=== PATIENT | female | born 1960 | race Two or more races ===

== ENCOUNTER 2020-12-26 08:20 | Emergency (ER) | payer MEDICAID ==
[~2020-12-26] VITALS: Ht 162.6 cm; Wt 63.5 kg
[2020-12-26 08:34] VITALS: BP 142/80
[2020-12-26] MEDS ORDERED: LIDOCAINE 1% HCL (LOCAL ANESTH.) INJ 20ML MDV IJ ONE (09:15)
== END 2020-12-26 09:50 | disposition home or self-care (01) ==
LOC: EDBD 08:20 → ER 08:20
DX: S01.81XA Laceration without foreign body of other part of head, initial encounter (principal); Z88.2 Allergy status to sulfonamides; W01.198A Fall on same level from slipping, tripping and stumbling with subsequent striking against other object, initial encounter; Y93.89 Activity, other specified; Y92.89 Other specified places as the place of occurrence of the external cause; Y99.8 Other external cause status
CPT/HCPCS: 12013; 70450; 99284; J2001

== ENCOUNTER 2021-01-04 13:11 | Emergency (ER) | payer MEDICAID ==
[~2021-01-04] VITALS: Ht 160 cm; Wt 65.8 kg
[2021-01-04 13:12] VITALS: BP 128/83
== END 2021-01-04 14:46 | disposition home or self-care (01) ==
LOC: ER 13:11
DX: S01.81XD Laceration without foreign body of other part of head, subsequent encounter (principal); F41.9 Anxiety disorder, unspecified; F32.9 Major depressive disorder, single episode, unspecified; X58.XXXD Exposure to other specified factors, subsequent encounter